=== PATIENT | female | born 1975 | race Caucasian/White ===

== ENCOUNTER 2019-01-02 07:49 | Outpatient (CLI) | payer BC, OTHER ==
--- NOTE | 2019-01-02 09:23 | MMO ---
Bilateral MAMMO Bilat Screen [facility]DI[facility]KKI. CLINICAL HISTORY: Patient is 43 years old and is seen for screening. The patient has no family history of breast cancer. The patient has no personal history of cancer. VIEWS: The views performed were: bilateral craniocaudal with tomosynthesis and bilateral mediolateral oblique with tomosynthesis. FILMS COMPARED: The present examination has been compared to a prior imaging study performed at [facility] on 08/27/2015. This study has been interpreted with the assistance of computer-aided detection. MAMMOGRAM FINDINGS: The breasts are heterogeneously dense, which could obscure a lesion on mammography. Finding 1: There are stable benign appearing calcifications seen in both breasts. Finding 2: There is a stable nodular density in the outer left breast. There are no suspicious masses, suspicious calcifications, or new areas of architectural distortion. IMPRESSION: THERE IS NO MAMMOGRAPHIC EVIDENCE OF MALIGNANCY. A ROUTINE FOLLOW-UP MAMMOGRAM IN 1 YEAR IS RECOMMENDED. THE RESULTS OF THIS EXAM WERE SENT TO THE PATIENT. ACR BI-RADS Category 2 - Benign finding MAMMOGRAPHY NOTE: 1. A negative mammogram report should not delay a biopsy if a dominant of clinically suspicious mass is present. 2. Approximately 10% to 15% of breast cancers are not detected by mammography. 3. Adenosis and dense breasts may obscure an underlying neoplasm. Reported by: HAYDEE ZAMBRANO MD Electonically Signed: [id number]
== END 2019-01-02 07:50 | disposition home or self-care (01) ==
LOC: BICMAMMO 07:49
PROVIDERS: ATTEND Family Medicine
DX: Z12.31 Encounter for screening mammogram for malignant neoplasm of breast (principal)
CPT/HCPCS: 77063; 77067

== ENCOUNTER 2020-05-18 09:30 | Observation (INO) | payer BC ==
[2020-05-18] MEDS ORDERED: Aspirin Chewable 81 MG TAB ONE (10:06)
[2020-05-18] MEDS ORDERED: Nitroglycerin 2% Ointment 1 INCH/1 GM Packet ONE (10:06)
--- NOTE | 2020-05-18 10:07 | RAD ---
EXAM: Portable chest PROVIDED CLINICAL HISTORY: Chest pain COMPARISON: 05/14/2020 FINDINGS: Cardiac and mediastinal silhouette is within normal limits. No focal consolidation, pleural fluid or pneumothorax evident. IMPRESSION: No evidence for an acute cardiopulmonary process.
[2020-05-18 10:20] LABS: #Basophils 0.1 thou/uL (0.0-0.2); #Eosinphils 0.1 thou/uL (0.0-0.7); #Monocytes 0.6 thou/uL (0.11-0.59); #Neutrophils 3.9 thou/uL (1.40-6.50); %Basophils 1.2 % (0.0-1.0); %Eosinophils 1.8 % (0.0-10.0); %Lymphocytes 29.6 % (21.0-51.0); %Monocytes 9.3 % (0.0-10.0); %Neutrophils 58.1 % (42.0-75.0); Hemoglobin 14.8 g/dL (12.0-16.0); Mean Corpuscular HGB CONC 35.1 g/dL (32.0-36.0); Mean Corpuscular Hemoglobin 32.7 pg (27.0-31.0); Mean Platelet Volume 8.1 fL (7.4-10.4); Platelet Count 275 thou/uL (130-400); RBC Distribution Width 11.3 % (11.5-14.5); Red Blood Cell (RBC) Count 4.53 mill/uL (4.20-5.40); White Blood Cell (WBC) Count 6.7 thou/uL (4.8-10.8)
[2020-05-18 10:38] LABS: ALT (SGPT) 16 U/L (8-55); AST (SGOT) 22 U/L (5-34); Albumin 4.4 g/dL (3.5-5.0); Alkaline Phosphatase 77 U/L (40-110); Anion Gap 16 mmol/L (10-20); BUN (Urea Nitrogen) 15 mg/dL (7.0-18.7); Bilirubin, Total 0.6 mg/dL (0.2-1.2); Calc. Creatinine Clearance 0 mL/min (70-130); Carbon Dioxide 24 mmol/L (22-29); Chloride 102 mmol/L (98-107); Globulin 3.2 g/dL (2.4-3.5); Glucose 90 mg/dL (70-105); Potassium 3.7 mmol/L (3.5-5.1); Protein, Total 7.6 g/dL (6.0-8.3); Sodium 138 mmol/L (136-145)
[2020-05-18] MEDS ORDERED: Senokot S 8.6-50 MG TAB PO PRN (12:06)
[2020-05-18] MEDS ORDERED: Acetaminophen 325 MG TAB PO PRN (12:06)
--- NOTE | 2020-05-18 13:02 | PDOC.HHP ---
Hospitalist HPI chest pain History of Present Illness: Nancy Colin is a 45F with a past medical history significant for asthma, hypertension and hyperlipidemia presenting with chest pain. Patient notes for the past 6 days she has had intermittent chest pain which she describes as a left-sided sternal pressure. She followed up with her primary care physician who performed an EKG and a chest x-ray which were unremarkable. Since that visit patient notes her chest pain has become more severe is lasting for longer periods of time. 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 She states neither the NTG paste or her inhaler have helped the symptoms. She is still having mild chest pressure, predominately on the left side. Her work up in the ED is largely unremarkable. EKG: ST depression in leads I, V5, V6, and prolonged QTc Troponin x1 neg and CBC and Chem unremarkable. She will be admitted for ACS r/o Allergies/Adverse Reactions: Allergy/AdvReac Type Severity Reaction Status Date / Time No Known Allergies Allergy Unverified 05/18/20 12:25 Past History: Home meds: hydroCHLOROthiazide Sun May 18, 2020 tablet : Strength - 25 mg : ORAL Patient Dose: 1 tab(s) Oral once a day (in the morning). Beclovent TueMay 18, 2020 10:03 aerosol : Strength - 42 mcg : INHALATION Patient Dose: 80 mcg Inhaler once a day. albuterol sulfate inhalation TueMay 18, 2020 HFA aerosol inhaler : Strength - 90 mcg : INHALATION Patient Dose: 1-2 puff(s) Inhaler As Needed. PMH: Asthma, HTN, HLD, migraine headaches PSH: appy Psych: none FH: CAD, AAA No smoking history, denies alcohol/drug use Hospitalist HPI ROS Constitutional: denies: fever, chills, sweats, weakness, malaise, other Eyes: denies: pain, vision change, conjunctivae inflammation, eyelid inflammation, redness, other ENT: denies: ear pain, ear discharge, nose pain, nose discharge, nose congestion, mouth pain, mouth swelling, throat pain, throat swelling, other Respiratory: reports: shortness of breath Cardiovascular: reports: chest pain Gastrointestinal: denies: nausea, vomiting, abdominal pain, diarrhea, constipation, melena, hematochezia, other Genitourinary: denies: dysuria, frequency, incontinence, hematuria, retention, other Musculoskeletal: denies: neck pain, shoulder pain, arm pain, back pain, hand pain, leg pain, foot pain, other Skin: denies: rash, lesions, darius, bruising, other Neurological: denies: weakness, numbness, incoordination, change in speech, confusion, seizures, other Hospitalist Exam General Appearance: NAD, awake alert Eye: PERRL ENT: normocephalic atraumatic, moist mucosa Neck: supple, no lymphadenopathy Heart: RRR, normal peripheral pulses Respiratory: CTAB, no wheezes, normal chest expansion Gastrointestinal: soft, non-tender Extremities: no edema Skin: normal turgor Neurological: cranial nerve grossly intact Musculoskeletal: normal tone Psychiatric: normal affect, A&O x 3 Hospitalist Results Result Diagrams: 05/18/20 09:55 05/18/20 09:55 Lab results: Laboratory Last Values WBC 6.7 thou/uL (4.8-10.8) 05/18/20 09:55 RBC 4.53 mill/uL (4.20-5.40) 05/18/20 09:55 Hgb 14.8 g/dL (12.0-16.0) 05/18/20 09:55 Hct 42.1 % (36.0-47.0) 05/18/20 09:55 MCV 93.0 fL (78.0-98.0) 05/18/20 09:55 MCH 32.7 pg (27.0-31.0) H 05/18/20 09:55 MCHC 35.1 g/dL (32.0-36.0) 05/18/20 09:55 RDW 11.3 % (11.5-14.5) L 05/18/20 09:55 Plt Count 275 thou/uL (130-400) 05/18/20 09:55 MPV 8.1 fL (7.4-10.4) 05/18/20 09:55 Neutrophils % 58.1 % (42.0-75.0) 05/18/20 09:55 Lymphocytes % 29.6 % (21.0-51.0) 05/18/20 09:55 Monocytes % 9.3 % (0.0-10.0) 05/18/20 09:55 Eosinophils % 1.8 % (0.0-10.0) 05/18/20 09:55 Basophils % 1.2 % (0.0-1.0) H 05/18/20 09:55 Neutrophils # 3.9 thou/uL (1.40-6.50) 05/18/20 09:55 Lymphocytes # 2.0 thou/uL (1.20-3.40) 05/18/20 09:55 Monocytes # 0.6 thou/uL (0.11-0.59) H 05/18/20 09:55 Eosinophils # 0.1 thou/uL (0.0-0.7) 05/18/20 09:55 Basophils # 0.1 thou/uL (0.0-0.2) 05/18/20 09:55 Sodium 138 mmol/L (136-145) 05/18/20 09:55 Potassium 3.7 mmol/L (3.5-5.1) 05/18/20 09:55 Chloride 102 mmol/L (98-107) 05/18/20 09:55 Carbon Dioxide 24 mmol/L (22-29) 05/18/20 09:55 Anion Gap 16 mmol/L (10-20) 05/18/20 09:55 BUN 15 mg/dL (7.0-18.7) 05/18/20 09:55 Creatinine 0.78 mg/dL (0.6-1.1) 05/18/20 09:55 Estimated GFR (MDRD) 80 05/18/20 09:55 Glucose 90 mg/dL (70-105) 05/18/20 09:55 Calcium 9.0 mg/dL (7.8-10.44) 05/18/20 09:55 Total Bilirubin 0.6 mg/dL (0.2-1.2) 05/18/20 09:55 AST 22 U/L (5-34) 05/18/20 09:55 ALT 16 U/L (8-55) 05/18/20 09:55 Alkaline Phosphatase 77 U/L (40-110) 05/18/20 09:55 Troponin I 0.012 ng/mL (< 0.028) 05/18/20 09:55 Serum Total Protein 7.6 g/dL (6.0-8.3) 05/18/20 09:55 Albumin 4.4 g/dL (3.5-5.0) 05/18/20 09:55 Globulin 3.2 g/dL (2.4-3.5) 05/18/20 09:55 Albumin/Globulin Ratio 1.4 g/dL (1.2-2.2) 05/18/20 09:55 Hospitalist H&P A/P (1) Chest pain Code(s): R07.9 - CHEST PAIN, UNSPECIFIED Status: Acute (2) Asthma Code(s): J45.909 - UNSPECIFIED ASTHMA, UNCOMPLICATED Status: Chronic (3) Hypertension Code(s): I10 - ESSENTIAL (PRIMARY) HYPERTENSION Status: Chronic (4) Hyperlipemia Code(s): E78.5 - HYPERLIPIDEMIA, UNSPECIFIED Status: Chronic (5) Migraine Code(s): G43.909 - MIGRAINE, UNSP, NOT INTRACTABLE, WITHOUT STATUS MIGRAINOSUS Status: Chronic Plan: PLAN # Chest pain -Trend troponins -Stress Test -check tsh, lipids, mag -nitro prn #Hx of HTN, HLD, Asthma -Restart home medications once reconciled PUD and DVT prevention started Plan discussed with Dr. Thompson
[2020-05-18] MEDS ORDERED: Nitroglycerin 0.4 MG TAB (25 Tab Bottle) SL PRN (13:15)
[2020-05-18] MEDS ORDERED: hydrALAZINE 20 MG/ML VIAL SLOW IVP PRN (13:15)
[2020-05-18] MEDS ORDERED: Ondansetron PF 4 MG/2 ML Vial IVP PRN (13:52)
[2020-05-18] MEDS ORDERED: Ondansetron ODT 4 MG TAB PO PRN (13:52)
[2020-05-18 14:16] LABS: Troponin I Less than 0.010 ng/mL (< 0.028)
[2020-05-18] MEDS: Famotidine 20 MG TAB PO SCH (22:27)
[2020-05-19 06:09] LABS: #Basophils 0.1 thou/uL (0.0-0.2); #Eosinphils 0.2 thou/uL (0.0-0.7); #Lymphocytes 2.4 thou/uL (1.20-3.40); #Monocytes 0.6 thou/uL (0.11-0.59); %Basophils 1.2 % (0.0-1.0); %Eosinophils 2.2 % (0.0-10.0); %Lymphocytes 33.7 % (21.0-51.0); %Monocytes 7.8 % (0.0-10.0); Hemoglobin 13.3 g/dL (12.0-16.0); Mean Corpuscular HGB CONC 34.8 g/dL (32.0-36.0); Mean Corpuscular Hemoglobin 32.7 pg (27.0-31.0); Mean Platelet Volume 8.2 fL (7.4-10.4); Platelet Count 258 thou/uL (130-400); RBC Distribution Width 11.4 % (11.5-14.5); Red Blood Cell (RBC) Count 4.06 mill/uL (4.20-5.40); White Blood Cell (WBC) Count 7.2 thou/uL (4.8-10.8)
[2020-05-19 06:15] LABS: Anion Gap 9 mmol/L (10-20); BUN (Urea Nitrogen) 16 mg/dL (7.0-18.7); Calc. Creatinine Clearance 0 mL/min (70-130); Calcium 8.4 mg/dL (7.8-10.44); Carbon Dioxide 26 mmol/L (22-29); Cardiac Risk 5.1 (Less than 4.5); Chloride 107 mmol/L (98-107); Cholesterol 194 mg/dl (< 200 Desired); Glucose 89 mg/dL (70-105); HDL Cholesterol 38 mg/dL (>60 Neg Risk); LDL Cholesterol, Calculated 142 mg/dL; Potassium 3.4 mmol/L (3.5-5.1); Sodium 139 mmol/L (136-145); Triglycerides 70 mg/dL (Less than 150)
[2020-05-19] MEDS: Enoxaparin Sodium 40 MG/0.4 ML SYRINGE SC SCH (08:23)
[2020-05-19] MEDS: Hydrochlorothiazide 25 MG TAB PO SCH (08:23)
[2020-05-19] MEDS: Famotidine 20 MG TAB PO SCH ×2 (08:23→20:32)
[2020-05-19] MEDS ORDERED: Potassium Chloride 20 MEQ TAB PO SCH (09:15)
[2020-05-19] MEDS ORDERED: Albuterol Sulfate 2.5 mg/3 ml Neb EZPAP PRN (09:27)
--- NOTE | 2020-05-19 10:10 | PDOC.HOSPP ---
- Subjective Encounter Date: 05/19/20 Encounter Time: 10:08 Subjective: Overnight, telemetry with ST depressions. Patient continues to have intermittent chest pain. On my exam she is chest pain free, but reports the pains will recur every few hours. Denies palpitations. Denies SOB or abdominal pain. Chart and medications reviewed. - Objective Vital Signs & Weight: Vital Signs (12 hours) Temp Pulse Resp BP BP Pulse Ox 05/19/20 07:39 98.3 F 92 18 146/79 H 96 05/19/20 04:00 97.9 F 81 20 134/77 97 05/19/20 00:00 98.1 F 72 18 133/67 98 Weight Weight 5.538 oz I&O: 05/18/20 05/19/20 05/20/20 06:59 06:59 06:59 Intake Total 460 Balance 460 Result Diagrams: 05/19/20 05:25 05/19/20 05:25 Hospitalist ROS - Review of Systems Constitutional: denies: fever, chills, sweats, weakness, malaise, other Eyes: denies: pain, vision change, conjunctivae inflammation, eyelid inflammation, redness, other ENT: denies: ear pain, ear discharge, nose pain, nose discharge, nose con gestion, mouth pain, mouth swelling, throat pain, throat swelling, other Respiratory: denies: cough, dry, shortness of breath, hemoptysis, SOB with excertion, pleuritic pain, sputum, wheezing, other Cardiovascular: reports: chest pain. denies: palpitations, orthopnea, paroxysmal noc. dyspnea, edema, light headedness, other Gastrointestinal: denies: nausea, vomiting, abdominal pain, diarrhea, constipation, melena, hematochezia, other Genitourinary: denies: dysuria, frequency, incontinence, hematuria, retention, other Musculoskeletal: denies: neck pain, shoulder pain, arm pain, back pain, hand pain, leg pain, foot pain, other Skin: denies: rash, lesions, darius, bruising, other Neurological: denies: weakness, numbness, incoordination, change in speech, confusion, seizures, other - Medication Medications: Active Medications Generic Name Dose Route Start Last Admin Trade Name Freq PRN Reason Stop Dose Admin Enoxaparin Sodium 40 mg 05/19/20 09:00 05/19/20 08:23 Enoxaparin Sodium 40 Mg/0.4 Ml Syringe SC Not Given 0900 [facility] Famotidine 20 mg 05/18/20 21:00 05/19/20 08:23 Famotidine 20 Mg Tab PO 20 mg BID JAGUAR Administration Hydrochlorothiazide 25 mg 05/19/20 09:00 05/19/20 08:23 Hydrochlorothiazide 25 Mg Tab PO 25 mg DAILY JAGUAR Administration Hospitalist Exam Vitals: Vital Signs (12 hours) Temp Pulse Resp BP BP Pulse Ox 05/19/20 07:39 98.3 F 92 18 146/79 H 96 05/19/20 04:00 97.9 F 81 20 134/77 97 05/19/20 00:00 98.1 F 72 18 133/67 98 Weight Weight 5.538 oz General Appearance: NAD, awake alert Eye: PERRL, anicteric sclera ENT: normocephalic atraumatic, no oropharyngeal lesions, moist mucosa Neck: supple, symmetric, no JVD, no thyromegaly, no lymphadenopathy, no carotid bruit Heart: RRR, no murmur, no gallops, no rubs, normal peripheral pulses Respiratory: CTAB, no wheezes, no rales, no ronchi, normal chest expansion, no tachypnea, normal percussion Gastrointestinal: soft, non-tender, non-distended, normal bowel sounds, no palpable masses, no hepatomegaly, no splenomegaly, no bruit Extremities: no cyanosis, no clubbing, no edema Skin: normal turgor, no lesions, no rashes Neurological: cranial nerve grossly intact, normal sensation to touch, no weakness, no focal deficits, no new deficit Musculoskeletal: normal tone, normal strength, no muscle wasting Psychiatric: normal affect, normal behavior, A&O x 3 Hosp A/P - Plan Chest pain 45F with hx of HTN who presents for 6 days of intermittent chest pain. On review of EKG in ER patient had ST depressions in 1, V5, V6. Telemetry review also shows continued intermittent ST depressions. Troponin negative x3. Will consult cardiology given signs of ischemia and hold off on stress testing at this time. Will repeat EKG. Plan -ASA, nitro -Telemetry monitoring -Troponin negative x3 -Cardiology consult, recommendations appreciated Abnormal EKG Signs of ischemia on EKG. ST depression in V5, V6, 1. Telmetry also with signs of intermittent ST depression. Will repeat EKG this am and consult cardiology. Troponin negative x3. Hypokalemia K 3.4 this am, will replete and continue to monitor. Hypomagnesemia Mg 1.9 this am, will maintain above 2, replete and continue to monitor. Hypertension Hx of htn, will continue home HCTZ. Asthma Hx of asthma on home albuterol. No SOB. Will make home albuterol inhaler available PRN. DVT prophylaxis- SCDs FULL CODE Case discussed with attending physician, Dr. Thompson.
[2020-05-19] MEDS ORDERED: Magnesium 2 GM/50 ML 2 GM in Premix Bag 1 BAG IVPB SCH (10:15)
[2020-05-19] MEDS ORDERED: Atorvastatin Calcium 40 MG TAB PO SCH (21:00)
--- NOTE | 2020-05-20 06:11 | CON ---
DATE OF CONSULTATION: INDICATION FOR CONSULTATION: A 45-year-old female with a history of chest pain. HISTORY OF PRESENT ILLNESS: This is a very pleasant 45-year-old female who was admitted on her birthday, which was yesterday, complaining of mild pinching-type sensation in the chest which lasts for just a few seconds, but this became more frequently. She mainly notices it at night. She says it has been happening for about a week. She has had no other significant changes or anything that might stimulate this abnormal chest discomfort. She is able to exercise. She denies any discomfort when she exercises, but has not been doing a whole lot for the last week. She eventually went to the emergency room because she was short of breath and she felt it had to do with her asthma; however, since being in the emergency room, she had an EKG performed, which showed some nonspecific ST-segment changes and she was admitted. Her enzymes are negative. She has had no further chest pressure, but says that she occasionally still has some pinching-type sensations in her chest. They are on the left side and various areas in the left upper chest and sometimes she has them in her back. She does have risk factors for coronary artery disease, which include hypertension and hypercholesterolemia. She also has a low HDL level. She has no history of diabetes or tobacco abuse and no early family history of coronary artery disease. PAST MEDICAL HISTORY: Significant for hypertension, dyslipidemia, and appendectomy. SOCIAL HISTORY: She is . She has no children. 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 She has rare alcohol use. FAMILY HISTORY: Her father has hypercholesterolemia and hypertension. ALLERGIES: NONE. MEDICATIONS: Prior to admission include: 1. Hydrochlorothiazide 25 mg a day. 2. She also was on betamethasone for her asthma with albuterol. 3. Ibuprofen occasionally for migraines. Otherwise, she is not on any other significant medications. REVIEW OF SYSTEMS: 12-point review of systems unremarkable except she wears glasses. She has asthma. She has had some problems with dyspepsia, which started about 2 months ago, but otherwise 12-point review of systems is unremarkable except what is noted in the History of Present Illness. PHYSICAL EXAMINATION: GENERAL: Reveals a well-developed, well-nourished female, in no acute distress. VITAL SIGNS: Blood pressure is 140/91, heart rate is 83 and regular, temperature is 98, respiratory rate 16. HEENT: Shows the head to be normocephalic and atraumatic. Carotid pulses are present. There were no bruits. CHEST: Clear to auscultation. There are no rales, rhonchi, or wheezing noted. CARDIOVASCULAR EXAM: Reveals a regular rate and rhythm. Normal S1, S2. There is no S3 or S4. There were no significant murmurs, heaves, thrills, bruits, or rubs noted. ABDOMINAL EXAM: Soft and nontender. Positive bowel sounds are present. There is no organomegaly or masses noted. Femoral pulses are present. EXTREMITIES: Showed no clubbing, cyanosis, or edema. SKIN: Warm and dry. NEUROLOGIC: She is fully intact. She is able to ambulate without difficulties. IMAGING PROCEDURE: EKG shows normal sinus rhythm with no significant changes on repeat EKG. This appears to be a normal EKG, although the first EKG did show some nonspecific T-wave changes. She has not had any significant changes on the EKG on the telemetry as far as I can determine. Her chest x-ray also was normal. LABORATORY DATA: Shows a WBC of 7.2, hemoglobin 13.3, platelet count was 358,000. Sodium was 139, potassium 3.4, BUN was 16, creatinine 0.72, and blood sugar of 89. Her LDL level is 142, which is elevated. Triglycerides were 70 and HDL was 38 which is low. Cardiac enzymes are negative x3. IMPRESSION: 1. Chest pain in a 45-year-old female with hypertension, hypercholesterolemia, and some nonspecific EKG changes. We will schedule her for stress testing to rule out evidence of underlying ischemia. If there are any changes noted, then we can pursue this further with cardiac catheterization. 2. Hypercholesterolemia. She will resume her medications for the cholesterol. She will be placed on medicines for cholesterol, probably at least until we can determine whether or not she has any underlying disease. She watches her diet relatively well, but for the last week or two, perhaps has not been as astute in watching her diet. Certainly, we would advise given her risk with the hypertension and the chest discomfort, we will start her on medication. With her LDL level of 142, we will try to shoot for a goal of at least less than 120. Also, her HDL level is 38, which is somewhat unusual in a female, especially someone who exercises, to have a very low HDL level. 3. Hypertension. This is under reasonable control, but still remains elevated. She has only been given the hydrochlorothiazide. She may need further medications for lowering of the blood pressure. We will shoot for a goal of less than 120 systolically. Further recommendations will depend on the results of the stress test. Job ID: [id number]
[2020-05-20] MEDS: Enoxaparin Sodium 40 MG/0.4 ML SYRINGE SC SCH (09:06)
[2020-05-20] MEDS: Hydrochlorothiazide 25 MG TAB PO SCH (12:33)
[2020-05-20] MEDS: Famotidine 20 MG TAB PO SCH (12:33)
[2020-05-20 12:37] VITALS: BP 130/88; TEMP 97.8
--- NOTE | 2020-05-20 14:13 | NM ---
Nuclear medicine myocardial perfusion scan: 05/20/2020 COMPARISON: None available HISTORY: Chest pain TECHNIQUE: SPECT imaging of the left ventricular myocardium obtained during stress and rest following the intravenous administration of 30.9 and 11.0mCi technetium 99 M labeled sestamibi respectively. FINDINGS: No discrete fixed or reversible defect. TID is 0.84. Left ventricular wall motion appears within normal limits. End-diastolic volume is 64 mL and end systolic volume is 30 mL. Left ventricular ejection fraction is estimated at 54%. IMPRESSION: No discrete reversible defect. Normal left ventricular wall motion. Estimated LVEF of 54%.
--- NOTE | 2020-05-20 14:39 | PDOC.DS.DS ---
Provider Date of Admission: 05/18/20 11:22 Date of Discharge: 05/20/20 Admitting Provider: Kailash Thompson MD Consultations: Cardiology Primary Care Physician: Monika Mansfield Course Hospital Course: Patient is a 45 year old female with a PMH of HTN who was admitted with an episode of chest pain. Her EKG showed some non-specific ST changes., her LDL was 142. She underwent nuclear stress test which did not reveal any fixed or reversible defects. She will be discharged on atorvastatin and follow up with her PCP as needed. Denies any history of tobacco smoking or excessive alcohol consumption. Lab Results: 05/19/20 05:25 05/19/20 05:25 Abnormal Lab Results - Last 48 hrs 05/19/20 05:25: Potassium 3.4 L, Anion Gap 9 L 05/19/20 05:25: RBC 4.06 L, MCH 32.7 H, RDW 11.4 L, Basophils % 1.2 H, Monocytes # 0.6 H Vitals: Vital Signs (12 hours) Temp Pulse Resp BP BP Pulse Ox 05/20/20 12:00 97.8 F 90 18 130/88 99 05/20/20 07:15 98.0 F 79 18 122/86 98 05/20/20 04:00 97.8 F 80 18 121/77 98 Weight Weight 5.538 oz Physical Exam: The patient was seen and examined on the day of discharge. General Appearance: NAD, awake alert Eye: anicteric sclera ENT: normocephalic atraumatic Respiratory: CTAB, no wheezes, no rales, no ronchi Cardiovascular: RRR, no murmur, no gallops, no rubs Extremities: no clubbing, no edema Neurological: cranial nerve grossly intact PSYCH: normal affect, normal behavior Plan Prescriptions: Aspirin [Adult Low Dose Aspirin EC] 81 mg PO DAILY #30 tablet. Atorvastatin Calcium [Lipitor] 40 mg PO HS #30 tab Home Medications: Medication Instructions Recorded Confirmed Type Hydrochlorothiazide 25 mg PO DAILY 05/19/20 05/19/20 History Aspirin [Adult Low Dose Aspirin EC] 81 mg PO DAILY #30 tablet. 05/20/20 Rx Atorvastatin Calcium [Lipitor] 40 mg PO HS #30 tab 05/20/20 Rx Allergies: No Known Allergies Allergy (Unverified 05/18/20 12:25) Referrals: Ramya Dailey MD [Primary Care Provider] - Disposition: HOME Quality CORE MEASURES:: N/A
--- NOTE | 2020-05-20 14:56 | PDOC.CPN ---
- Subjective Date: 05/20/20 Time: 14:54 Interval history: Patient sitting up at bedside in chair, family at bedside. She denies any complaints today. No chest pain or shortness of breath - Review of Systems General: denies: fever/chills, weight/appetite/sleep changes, night sweats, fatigue Respiratory: denies: cough, congestion, shortness of breath, exercise intolerance Cardiovascular: denies: chest pain, palpitation, edema, paroxysmal nocturnal dyspnea, orthopnea Gastrointestinal: denies: nausea, vomiting, diarrhea, constipation, abd pain, GI bleeding Musculoskeletal: denies: pain, tenderness, stiffness, swelling, arthritis/arthralgias Neurological: denies: numbness, syncope, seizure, weakness - Objective Allergies/Adverse Reactions: Allergies Allergy/AdvReac Type Severity Reaction Status Date / Time No Known Allergies Allergy Unverified 05/18/20 12:25 Visit Medications: Current Medications Acetaminophen (Acetaminophen 325 Mg Tab) 650 mg PO Q4H PRN PRN Reason: Headache/Fever/Mild Pain (1-3) Albuterol Sulfate (Albuterol Sulfate 2.5 Mg/3 Ml Neb) 2.5 mg EZPAP [id number] PRN PRN Reason: Wheezing Atorvastatin Calcium (Atorvastatin Calcium 40 Mg Tab) 40 mg PO HS [facility] Last Admin: 05/19/20 20:32 Dose: 40 mg Documented by: Enoxaparin Sodium (Enoxaparin Sodium 40 Mg/0.4 Ml Syringe) 40 mg SC 0900 [facility] Last Admin: 05/20/20 09:06 Dose: Not Given Documented by: Famotidine (Famotidine 20 Mg Tab) 20 mg PO BID [facility] Last Admin: 05/20/20 12:33 Dose: 20 mg Documented by: Hydralazine HCl (Hydralazine 20 Mg/Ml Vial) 10 mg SLOW IVP Q4H PRN PRN Reason: SBP > 180 and HR < 70 Hydrochlorothiazide (Hydrochlorothiazide 25 Mg Tab) 25 mg PO DAILY [facility] Last Admin: 05/20/20 12:33 Dose: 25 mg Documented by: Nitroglycerin (Nitroglycerin 0.4 Mg Tab (25 Tab Bottle)) 0.4 mg SL Q5MIN PRN PRN Reason: Chest Pain Senna/Docusate Sodium (Senokot S 8.6-50 Mg Tab) 2 tab PO BIDPRN PRN PRN Reason: Constipation Sodium Chloride (Flush - Normal Saline 10 Ml Syringe) 10 ml IVF PRN PRN PRN Reason: Saline Flush Vital Signs & Weight: Vital Signs Temp Pulse Resp BP BP Pulse Ox 05/20/20 12:00 97.8 F 90 18 130/88 99 05/20/20 07:15 98.0 F 79 18 122/86 98 05/20/20 04:00 97.8 F 80 18 121/77 98 Weight 5.538 oz - Physical Exam General: alert & oriented x3, appears well, no apparent distress HEENT: mucus membranes moist Neck: no JVD/HJR, no bruit Cardiac: no murmur, regular rate, S1/S2 Lungs: normal breath sounds, normal exam, no wheeze, rales, rhonchi Neuro: grossly intact, motor function intact, sensory function intact Abdomen: active bowel sounds, soft, non-tender Extremities: no cyanosis, no clubbing, no edema, 2+ Posterior Tibial, 2+ Dorsalis Pedus Skin: clear Musculoskeletal: no pain, no fluid collection - Labs Result Diagrams: 05/19/20 05:25 05/19/20 05:25 Troponin/CKMB Troponin I 0.010 ng/mL (< 0.028) 05/18/20 16:44 - EKG Interpretation EKG Method: Telemetry EKG: sinus rhythm - Assessment/Plan Assessment/Plan: 1. Chest pain: history of HTN and hypercholesterolemia with non-specific changes noted on her EKG upon arrival. She denies any chest pain since arrival to the hospital. She has been started on Lipitor. Her BP has been well controlled. Her stress test today did not show any evidence of ischemia. 2. Hypercholesterolemia: she has been started on Lipitor 40 mg PO HS 3. History of hypertension: she is currently on HCTZ 25 mg PO daily. Advised low sodium diet and lifestyle modifications From a cardiology standpoint, she is stable for discharge. She can follow-up in one month with cardiology.
== END 2020-05-20 16:57 | disposition home or self-care (01) ==
LOC: ERS 09:30 → 3SE 11:22
PROVIDERS: ADMIT Internal Medicine; ATTEND Internal Medicine
DX: R07.89 Other chest pain (principal); J45.909 Unspecified asthma, uncomplicated; I10 Essential (primary) hypertension; E78.5 Hyperlipidemia, unspecified; G43.709 Chronic migraine without aura, not intractable, without status migrainosus; R94.31 Abnormal electrocardiogram [ECG] [EKG]; E87.6 Hypokalemia; E83.42 Hypomagnesemia; E78.00 Pure hypercholesterolemia, unspecified; Z79.899 Other long term (current) drug therapy
CPT/HCPCS: 36415; 71045; 78452; 80048; 80053; 80061; 83735; 84443; 84484; 85025; 93005; 93010; 93017; 94760; 96374; A9500; G0378; J3475

== ENCOUNTER 2020-07-01 07:54 | Outpatient (CLI) | payer BC | END 2020-07-01 07:55 | disposition home or self-care (01) | LOC: BICMAMMO 07:54 | PROVIDERS: ATTEND Obstetrics & Gynecology | DX: Z12.31 Encounter for screening mammogram for malignant neoplasm of breast (principal) | CPT/HCPCS: 77063; 77067 ==

== ENCOUNTER 2022-11-15 13:46 | Outpatient (CLI) | payer BC | END 2022-11-15 13:47 | disposition home or self-care (01) | PROVIDERS: ATTEND Student in an Organized Health Care Education/Training Program | DX: R07.9 Chest pain, unspecified (principal) | CPT/HCPCS: 93017 ==

== ENCOUNTER 2024-02-24 08:29 | Outpatient (CLI) | payer BC | END 2024-02-24 08:30 | disposition home or self-care (01) | LOC: BICMAMMO 08:29 | PROVIDERS: ATTEND Student in an Organized Health Care Education/Training Program | DX: Z12.31 Encounter for screening mammogram for malignant neoplasm of breast (principal) | CPT/HCPCS: 77063; 77067 ==